=== PATIENT | male | born 2000 | race African-American/Black ===

== ENCOUNTER 2022-03-07 15:01 | Emergency (ER) | payer BC ==
[2022-03-07] MEDS ORDERED: Lidocaine 1% (PF) 30 ML VIAL ONE (15:35)
[2022-03-07] MEDS ORDERED: Sulfameth/Trimethoprim DS 800-160mg TAB ONE (16:29)
[2022-03-07] MEDS ORDERED: Boostrix 0.5 ML (Tdap) VIAL (>/=7 yrs of age) ONE (16:29)
[2022-03-07] MEDS ORDERED: Ibuprofen 800 MG TAB ONE (16:29)
[2022-03-07] MEDS ORDERED: Bacitracin 1 PK ONE (17:07)
== END 2022-03-07 17:35 | disposition home or self-care (01) ==
LOC: MADERS 15:01
DX: S81.011A Laceration without foreign body, right knee, initial encounter (principal); Z23 Encounter for immunization; W29.3XXA Contact with powered garden and outdoor hand tools and machinery, initial encounter
CPT/HCPCS: 12032; 90471; 90715; J2001

== ENCOUNTER 2023-11-27 11:23 | Emergency (ER) | payer BC, OTHER ==
[2023-11-27] MEDS ORDERED: Lidocaine 1% w/Epinephrine 1:100K 20 ML VIAL ONE (11:30)
[2023-11-27] MEDS ORDERED: Sodium Chloride 0.9% 100 ML ONE (13:13)
[2023-11-27] MEDS ORDERED: CEFAZOLIN 2 GM VIAL ONE (13:13)
[2023-11-27] MEDS ORDERED: Bacitracin 1 PK ONE (13:25)
== END 2023-11-27 13:45 | disposition home or self-care (01) ==
LOC: MADERS 11:23
DX: S71.111A Laceration without foreign body, right thigh, initial encounter (principal); W29.3XXA Contact with powered garden and outdoor hand tools and machinery, initial encounter
CPT/HCPCS: 13121; 13122; 96365; J3490